=== PATIENT | male | born 1970 | race Asian ===

== ENCOUNTER 2020-04-15 15:53 | Emergency (ER) | payer SELFPAY ==
[~2020-04-15] VITALS: Ht 165.1 cm; Wt 72.7 kg
== END 2020-04-15 18:14 | disposition home or self-care (01) ==
LOC: ER 15:54
DX: B34.9 Viral infection, unspecified (principal); Z20.828 Contact with and (suspected) exposure to other viral communicable diseases
CPT/HCPCS: 36415; 87635; 99283

== ENCOUNTER 2021-04-10 13:31 | Emergency (ER) | payer BC ==
[~2021-04-10] VITALS: Ht 165.1 cm; Wt 77.3 kg
[2021-04-10 13:41] VITALS: BP 124/72
== END 2021-04-10 15:01 | disposition left against medical advice (07) ==
LOC: ER 13:32
DX: R05.9 Cough, unspecified (principal); Z53.21 Procedure and treatment not carried out due to patient leaving prior to being seen by health care provider

== ENCOUNTER 2021-04-19 17:55 | Emergency (ER) | payer BC | END 2021-04-19 20:00 | disposition left against medical advice (07) | LOC: ER 17:56 | DX: U07.1 COVID-19 (principal); Z53.21 Procedure and treatment not carried out due to patient leaving prior to being seen by health care provider ==